=== PATIENT | female | born 2000 | race Hispanic/Latino ===

== ENCOUNTER 2021-06-19 00:11 | Emergency (ER) | payer OTHER ==
--- NOTE | 2021-06-19 00:48 | XRay Report ---
XR chest routine 2V INDICATION / CLINICAL INFORMATION: CHEST PAIN. COMPARISON: None available. FINDINGS: SUPPORT DEVICES: None. HEART /PULMONARY VASCULATURE: No significant abnormality. LUNGS / PLEURA: No significant pulmonary or pleural abnormality. No pneumothorax. ADDITIONAL FINDINGS: No significant additional findings. IMPRESSION: 1. No acute findings. Signer Name: Cesar Lancaster MD Signed: 06/19/2021 12:43 AM Workstation Name: [id number]
[2021-06-19] MEDS ORDERED: IBUPROFEN 800 MG TAB PO ONE (07:44)
--- NOTE | 2021-06-19 07:45 | Emergency Department Report ---
Minor Respiratory - HPI Chief Complaint: Chest Pain Stated Complaint: COVID CHEST PAIN Time Seen by Provider: 06/19/21 07:43 Pain Location: Facial Severity: mild Minor Respiratory: Yes Able to Tolerate Fluids, Yes Cough, Yes Sick Contacts, Yes Chest Pain (w cough), No Rhinorrhea, No Sore Throat, No Ear Pain, No Hemoptysis, No Shortness of Breath, No Fever Other History: 20 yo comes to ER from "[facility] She has known covid. Pos since last and has intermittent cp with cough. no fever. no chills. ambulatory with good oxygenation. nad ED Review of Systems ROS: Stated complaint: COVID CHEST PAIN Other details as noted in HPI Comment: All other systems reviewed and negative ED Past Medical Hx - Past Medical History Previous Medical History?: No - Surgical History Past Surgical History?: No - Family History Family history: no significant - Social History Smoking Status: Never Smoker Substance Use Type: None Minor Respiratory Exam - Exam General: Vital signs noted. No distress. Alert and acting appropriately. HEENT: Yes Moist Mucous Membranes, No Pharyngeal Erythema, No Pharyngeal Exudates, No Rhinorrhea, No Conjuctival Injection, No Frontal Tenderness, No Maxillary Tenderness Ear: Neither TM Bulge, Neither TM Erythema, Neither EAC Pain, Neither EAC Discharge Neck: Yes Supple, No Adenopathy Lungs: Yes Good Air Exchange, No Wheezes, No Ronchi, No Stridor, No Cough, No Labored Respirations, No Retractions, No Use of Accessory Muscles, No Other Abnormal Lung Sounds Heart: Yes Regular, No Murmur Abdomen: Yes Normal Bowel Sounds, No Tenderness, No Peritoneal Signs Skin: No Rash, No Edema Neurologic: Alert and oriented, no deficits. Musculoskeletal: Unremarkable. ED Course Vital Signs 06/19/21 00:14 Temperature 98.2 F Pulse Rate 100 H Respiratory 18 Rate Blood Pressure 160/98 [Right] O2 Sat by Pulse 98 Oximetry ED Medical Decision Making - EKG Data EKG shows normal: sinus rhythm Rate: normal - EKG Data When compared to previous EKG there are: no significant change Interpretation: no acute changes - Radiology Data Radiology results: report reviewed, image reviewed nap - Medical Decision Making Vital Signs 06/19/21 00:14 Temperature 98.2 F Pulse Rate 100 H Respiratory 18 Rate Blood Pressure 160/98 [Right] O2 Sat by Pulse 98 Oximetry vss xray nap dc home with dc plan of care including care post covid. she verbalizes understanding of plan of care - Differential Diagnosis ro pna Critical care attestation.: If time is entered above; I have spent that time in minutes in the direct care of this critically ill patient, excluding procedure time. ED Disposition Clinical Impression: COVID-19 Disposition: 01 HOME / SELF CARE / HOMELESS Is pt being admited?: No Does the pt Need Aspirin: No Condition: Stable Instructions: COVID-19 Frequently Asked Questions, COVID-19, Prevent the Spread of COVID-19 if You Are Sick - [facility] Additional Instructions: stay well hydrated motrin or tylenol for pain follow up with pcp if problems persist referral below Referrals: NAJMA PAREDES MD [Staff Physician] - 3-5 Days Time of Disposition: 07:45
[2021-06-19 08:20] VITALS: BP 156/90
== END 2021-06-19 23:25 | disposition home or self-care (01) ==
LOC: ED 00:11
DX: U07.1 COVID-19 (principal)
CPT/HCPCS: 71046; 99283